=== PATIENT | male | born 1960 | race African-American/Black ===

== ENCOUNTER 2020-02-26 00:55 | Emergency (ER) | payer MEDICAID ==
[~2020-02-26] VITALS: Ht 182.9 cm; Wt 71.0 kg
[2020-02-26] MEDS ORDERED: HYDROCODONE/ACETAMINOPHEN 5/325MG TABLET PO ONE (01:15)
[2020-02-26 03:05] VITALS: BP 119/69
== END 2020-02-26 03:06 | disposition home or self-care (01) ==
LOC: ER 00:55
DX: S62.397A Other fracture of fifth metacarpal bone, left hand, initial encounter for closed fracture (principal); W51.XXXA Accidental striking against or bumped into by another person, initial encounter; Y93.89 Activity, other specified; Y92.89 Other specified places as the place of occurrence of the external cause; Y99.8 Other external cause status
CPT/HCPCS: 73130; 99283

== ENCOUNTER 2025-01-17 08:10 | Emergency (ER) | payer MEDICAID ==
[~2025-01-17] VITALS: Ht 188 cm; Wt 85.0 kg
[2025-01-17 08:12] VITALS: O2SAT 99
[2025-01-17] MEDS: HYDROCODONE/ACETAMINOPHEN 5/325MG TABLET PO ONE (08:39)
[2025-01-17] MEDS ORDERED: BO1 TP (09:56)
[2025-01-17] MEDS ORDERED: IBUP-2029 MT (09:56)
[2025-01-17 10:05] VITALS: BP 144/88; PULSE 70; RESP 18; TEMP 36.7; O2SAT 99
== END 2025-01-17 10:11 | disposition home or self-care (01) ==
LOC: ER 08:10
DX: S50.312A Abrasion of left elbow, initial encounter (principal); I10 Essential (primary) hypertension; Z98.890 Other specified postprocedural states; W19.XXXA Unspecified fall, initial encounter; Y93.89 Activity, other specified; Y92.89 Other specified places as the place of occurrence of the external cause; Y99.8 Other external cause status
CPT/HCPCS: 73080; 99283